=== PATIENT | male | born 1980 | race Caucasian/White ===

== ENCOUNTER 2016-07-17 12:18 | Emergency (ER) | payer OTHER ==
[~2016-07-17] VITALS: Ht 170.2 cm; Wt 90.7 kg
[2016-07-17 12:18] VITALS: BP 141/82; PULSE 78; RESP 16; TEMP 97.5; O2SAT 99
--- NOTE | 2016-07-17 12:18 | NUR ---
PLACED IN BED 4
--- NOTE | 2016-07-17 12:46 | NUR ---
BIB BLS,sudden onset anxiety at work.pt A&O x4, no distress noted.
--- NOTE | 2016-07-17 13:00 | NUR ---
ER at bedside examining patient.
--- NOTE | 2016-07-17 13:37 | NUR ---
Patient given written and verbal discharge instructions and verbalizes understanding. ER MD discussed with patient the results and treatment provided. Rx of xanax given. Patient educated on pain management and to follow up with PMD. Pain Scale [0]. Opportunity for questions provided and answered.
== END 2016-07-17 13:37 | disposition home or self-care (01) ==
LOC: SED 12:18
DX: F41.9 Anxiety disorder, unspecified (principal)
CPT/HCPCS: 93005; 99283